=== PATIENT | female | born 1970 | race Caucasian/White ===

== ENCOUNTER 2019-02-24 00:22 | Emergency (ER) | payer OTHER ==
--- OUTSIDE RECORDS SUMMARY | 2019-02-24 00:24 | XMS REPORT ---
:1970 [facility] Address [address] [place] [address] Care Team Providers Name Role Phone Unavailable Unavailable Unavailable Problems This patient has no known problems. Allergies, Adverse Reactions, Alerts This patient has no known allergies or adverse reactions. Medications This patient has no known medications.
[2019-02-24 01:03] LABS: Absolute Lymphocytes (CBC) 1.8 K/uL (0.7-4.9); Absolute Monocytes 0.4 K/uL (0.1-1.3); Absolute Neutrophil 7.6 K/uL (1.8-8.0); Basophils % 0.6 % (0-1.3); Eosinophils % 0.3 % (0-4.4); Hematocrit 35.4 % (36.0-45.0); Lymphocytes % 17.9 % (15.3-44.8); MPV 8.5 fL (7.6-11.3); Monocytes % 4.3 % (3.3-12.3); RBC Red Blood Cell Count 3.96 M/uL (3.86-4.86)
[2019-02-24] MEDS ORDERED: ONDANSETRON 4 MG/2 ML VIAL ONE (01:15)
[2019-02-24] MEDS ORDERED: NA CHLORIDE 0.9% 500 ML ONE (01:15)
[2019-02-24 01:20] LABS: ALT/SGPT 19 U/L (12-78); AST/SGOT 19 U/L (15-37); Albumin 3.2 g/dL (3.4-5.0); Alkaline Phosphatase 56 U/L (45-117); BUN Blood Urea Nitrogen 24 mg/dL (7-18); Bicarbonate 22 mmol/L (21-32); Bilirubin Direct < 0.1 mg/dL (0-0.2); Bilirubin Total 0.3 mg/dL (0.2-1.0); Glucose Level 110 mg/dL (74-106); Lipase 147 U/L (73-393); Potassium 3.9 mmol/L (3.5-5.1); Protein, Total 7.2 g/dL (6.4-8.2); Sodium Level 136 mmol/L (136-145)
--- NOTE | 2019-02-24 03:09 | EDPHYS ---
Physician Documentation [facility] Name: Julieth Flores Age: 48 yrs Sex: Female : 1970 Arrival Date: 02/24/2019 Time: 00:29 Bed 15 Private MD: ED Physician Alex Jimenez HPI: 02/24 02:03 This 48 yrs old Female presents to ER via EMS with complaints of Abdominal jr8 pain, nausea, shortness of breath. 02:03 The patient presents with abdominal pain in the upper abdomen. Onset: The jr8 symptoms/episode began/occurred acutely. The symptoms do not radiate. Associated signs and symptoms: Pertinent positives: nausea, shortness of breath. The symptoms are described as shooting. Modifying factors: The symptoms are alleviated by nothing, the symptoms are aggravated by nothing. Severity of pain: At its worst the pain was moderate in the emergency department the pain is unchanged. The patient has experienced similar episodes in the past, chronically. The patient has not recently seen a physician. 02:03 Patient stated that she has had abdominal pain on/off for several months. Worse today jr8 and with shortness of breath. Denies CP or fevers . 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 - Social history:: Smoking status: Patient/guardian denies using tobacco. - Ebola Screening: : No symptoms or risks identified at this time. ROS: 02:03 Eyes: Negative for injury, pain, redness, and discharge, ENT: Negative for injury, jr8 pain, and discharge, Neck: Negative for injury, pain, and swelling, Cardiovascular: Negative for chest pain, palpitations, and edema, Back: Negative for injury and pain, MS/Extremity: Negative for injury and deformity, Skin: Negative for injury, rash, and discoloration, Neuro: Negative for headache, weakness, numbness, tingling, and seizure. 02:03 Respiratory: Positive for shortness of breath, Negative for cough, dyspnea on exertion, hemoptysis, orthopnea, pleurisy, sputum production, wheezing. 02:03 Abdomen/GI: Positive for abdominal pain, nausea, Negative for vomiting, diarrhea, abdominal distension, anorexia, dysphagia, hematemesis, black/tarry stool, rectal pain, rectal bleeding, bowel incontinence, flatulence. Exam: 02:03 Eyes: Pupils equal round and reactive to light, extra-ocular motions intact. Lids and jr8 lashes normal. Conjunctiva and sclera are non-icteric and not injected. Cornea within normal limits. Periorbital areas with no swelling, redness, or edema. ENT: Nares patent. No nasal discharge, no septal abnormalities noted. Tympanic membranes are normal and external auditory canals are clear. Oropharynx with no redness, swelling, or masses, exudates, or evidence of obstruction, uvula midline. Mucous membranes moist. Neck: Trachea midline, no thyromegaly or masses palpated, and no cervical lymphadenopathy. Supple, full range of motion without nuchal rigidity, or vertebral point tenderness. No Meningismus. Cardiovascular: Regular rate and rhythm with a normal S1 and S2. No gallops, murmurs, or rubs. Normal PMI, no JVD. No pulse deficits. Respiratory: Lungs have equal breath sounds bilaterally, clear to auscultation and percussion. No rales, rhonchi or wheezes noted. No increased work of breathing, no retractions or nasal flaring. Abdomen/GI: Soft, non-tender, with normal bowel sounds. No distension or tympany. No guarding or rebound. No evidence of tenderness throughout. Back: No spinal tenderness. No costovertebral tenderness. Full range of motion. Skin: Warm, dry with normal turgor. Normal color with no rashes, no lesions, and no evidence of cellulitis. MS/ Extremity: Pulses equal, no cyanosis. Neurovascular intact. Full, normal range of motion. Neuro: Awake and alert, GCS 15, oriented to person, place, time, and situation. Cranial nerves II-XII grossly intact. Motor strength 5/5 in all extremities. Sensory grossly intact. Cerebellar exam normal. Normal gait. Vital Signs: 00:33 BP 155 / 88; Pulse 101; Resp 20; Temp 98.2(O); Pulse Ox 100% on R/A; Weight 83.91 kg; tl2 Height 5 ft. 0 in. (152.40 cm); Pain 3/10; 01:26 BP 146 / 63; Pulse 88; Resp 18; Pulse Ox 100% on R/A; tl2 02:25 BP 142 / 58; Pulse 87; Resp 18; Pulse Ox 100% on R/A; tl2 03:25 BP 130 / 51; Pulse 94; Resp 18; Pulse Ox 99% on R/A; tl2 00:33 Body Mass Index 36.13 (83.91 kg, 152.40 cm) tl2 MDM: 00:37 Patient medically screened. 8 03:00 Data reviewed: vital signs, nurses notes, lab test result(s), radiologic studies, CT jr8 scan. Data interpreted: Pulse oximetry: on room air is 100 %. Interpretation: normal. Counseling: I had a detailed discussion with the patient and/or guardian regarding: the historical points, exam findings, and any diagnostic results supporting the discharge/admit diagnosis, lab results, radiology results, the need for outpatient follow up, a family practitioner, to return to the emergency department if symptoms worsen or persist or if there are any questions or concerns that arise at home. Response to treatment: the patient's symptoms have mildly improved after treatment. 02/24 00:50 Order name: Basic Metabolic Panel; Complete Time: 02/24 00:50 Order name: CBC with Diff; Complete Time: :02/24 00:50 Order name: Creatinine for Radiology; Complete Time: 02/24 00:50 Order name: Hepatic Function; Complete Time: 02/24 00:50 Order name: Lipase; Complete Time: 02/24 00:50 Order name: XRAY Chest (1 view) 02/24 00:50 Order name: IV Saline Lock; Complete Time: 02/24 00:50 Order name: Labs collected and sent; Complete Time: 0002/24 00:50 Order name: EKG - Nurse/Tech; Complete Time: :02/24 01:42 Order name: CT Abd/Pelvis - Without Cont jr8 Administered Medications: 01:07 Drug: NS 0.9% 500 ml Route: IV; Rate: bolus; Site: right wrist; tl2 02:00 Follow up: IV Status: Completed infusion; IV Intake: 500ml tl2 01:07 Drug: Zofran 4 mg Route: IVP; Site: right wrist; tl2 02:00 Follow up: Response: No adverse reaction; Nausea is decreased tl2 Disposition: 02/24/19 03:09 Discharged to Home. Impression: Unspecified abdominal hernia without obstruction or gangrene, Abdominal and pelvic pain, Shortness of breath. - Condition is Stable. - Discharge Instructions: Abdominal Pain, Adult, Allergies, Adult, Hernia, Adult. - Prescriptions for Zofran 4 mg Oral Tablet - take 1 tablet by ORAL route every 12 hours As needed; 20 tablet. - Medication Reconciliation Form, Thank You Letter, Antibiotic Education, Prescription Opioid Use form. - Follow up: Private Physician; When: 2 - 3 days; Reason: Recheck today's complaints, Continuance of care, Re-evaluation by your physician. - Problem is new. - Symptoms have improved. Addendum: 02/26/2019 11:16 Co-signature as Attending Physician, Alex Jimenez MD I agree with the assessment and c chavez plan of care. Signatures: Dispatcher [employer] EDRI Alex Jimenez MD MD cha Roszak, Josh, PA PA jr8 Mily Yusuf RN RN tl2 Corrections: (The following items were deleted from the chart) 02/24 03:54 03:09 02/24/2019 03:09 Discharged to Home. Impression: Unspecified abdominal hernia tl2 without obstruction or gangrene; Abdominal and pelvic pain; Shortness of breath. Condition is Stable. Discharge Instructions: Abdominal Pain, Adult, Allergies, Adult, Hernia, Adult. Prescriptions for Zofran 4 mg Oral Tablet - take 1 tablet by ORAL route every 12 hours As needed; 20 tablet. and Forms are Medication Reconciliation Form, Thank You Letter, Antibiotic Education, Prescription Opioid Use. Follow up: Private Physician; When: 2 - 3 days; Reason: Recheck today's complaints, Continuance of care, Re-evaluation by your physician. Problem is new. Symptoms have improved. jr8
--- NOTE | 2019-02-24 03:09 | ER ---
Nurse's Notes [facility] Name: Julieth Flores Age: 48 yrs Sex: Female : 1970 Arrival Date: 02/24/2019 Time: 00:29 Bed 15 Private MD: Diagnosis: Unspecified abdominal hernia without obstruction or gangrene;Abdominal and pelvic pain;Shortness of breath Presentation: 02/24 00:30 Presenting complaint: Patient states: shortness of breath, RUQ hernia pain and sinus tl2 problems. Transition of care: patient was not received from another setting of care. Onset of symptoms was February 23, 2019. Risk Assessment: Do you want to hurt yourself or someone else? Patient reports no desire to harm self or others. Initial Sepsis Screen: Does the patient meet any 2 criteria? No. Patient's initial sepsis screen is negative. Does the patient have a suspected source of infection? No. Patient's initial sepsis screen is negative. Care prior to arrival: IV initiated. 22 GA, in the right wrist, Glucose check: 130. 00:30 Method Of Arrival: EMS: [facility] tl2 00:30 Acuity: CAREY 3 tl2 Triage Assessment: 00:33 General: Appears in no apparent distress. uncomfortable, Behavior is cooperative, tl2 appropriate for age, anxious. Pain: Complains of pain in right upper quadrant. Neuro: Level of Consciousness is awake, alert, obeys commands, Oriented to person, place, time, situation. Cardiovascular: Denies chest pain. Respiratory: Reports shortness of breath Airway is patent Respiratory effort is even, unlabored, Respiratory pattern is regular, symmetrical, Onset: The symptoms/episode began/occurred today, the patient has mild shortness of breath. GI: Reports nausea. : No signs and/or symptoms were reported regarding the genitourinary system. Derm: Skin is pink, warm \T\ dry. 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 - Social history:: Smoking status: Patient/guardian denies using tobacco. - Ebola Screening: : No symptoms or risks identified at this time. Screenin:35 Abuse screen: Denies threats or abuse. Nutritional screening: No deficits noted. tl2 Tuberculosis screening: No symptoms or risk factors identified. Fall Risk None identified. Assessment: 00:36 General: see triage assessment. Cardiovascular: Denies chest pain. Respiratory: Airway tl2 is patent Respiratory effort is even, unlabored, Respiratory pattern is regular, symmetrical. 00:36 Cardiovascular: Rhythm is sinus rhythm. Respiratory: Breath sounds are clear tl2 bilaterally. 01:30 Reassessment: Patient appears in no apparent distress at this time. Patient and/or tl2 family updated on plan of care and expected duration. Pain level reassessed. Patient is alert, oriented x 3, equal unlabored respirations, skin warm/dry/pink. 02:30 Reassessment: Patient appears in no apparent distress at this time. Patient and/or tl2 family updated on plan of care and expected duration. Pain level reassessed. Patient is alert, oriented x 3, equal unlabored respirations, skin warm/dry/pink. 03:25 Reassessment: Patient appears in no apparent distress at this time. Patient and/or tl2 family updated on plan of care and expected duration. Pain level reassessed. Patient is alert, oriented x 3, equal unlabored respirations, skin warm/dry/pink. pt verbalized understanding of discharge instructions, need for follow up and prescription usage. Will wait in room for her ride to arrive at 0400. Vital Signs: 00:33 BP 155 / 88; Pulse 101; Resp 20; Temp 98.2(O); Pulse Ox 100% on R/A; Weight 83.91 kg; tl2 Height 5 ft. 0 in. (152.40 cm); Pain 3/10; 01:26 BP 146 / 63; Pulse 88; Resp 18; Pulse Ox 100% on R/A; tl2 02:25 BP 142 / 58; Pulse 87; Resp 18; Pulse Ox 100% on R/A; tl2 03:25 BP 130 / 51; Pulse 94; Resp 18; Pulse Ox 99% on R/A; tl2 00:33 Body Mass Index 36.13 (83.91 kg, 152.40 cm) tl2 ED Course: 00:29 Patient arrived in ED. tl2 00:31 Triage completed. tl2 00:33 Arm band placed on left wrist. tl2 00:35 Patient has correct armband on for positive identification. Bed in low position. Call tl2 light in reach. Side rails up X2. 00:35 Maintain EMS IV. Dressing intact. Good blood return noted. Site clean \T\ dry. Gauge \T\ tl 2 site: 22 g R wrist. 00:37 Lionel Garza PA is PHCP. jr8 00:37 Alex Jimenez MD is Attending Physician. jr8 00:53 Mily Yusuf, JORGE is Primary Nurse. tl2 02:11 XRAY Chest (1 view) In Process Unspecified. EDMS 02:50 CT Abd/Pelvis - Without Cont In Process Unspecified. EDMS 03:25 No provider procedures requiring assistance completed. IV discontinued, intact, tl2 bleeding controlled, No redness/swelling at site. Pressure dressing applied. Administered Medications: 01:07 Drug: NS 0.9% 500 ml Route: IV; Rate: bolus; Site: right wrist; tl2 02:00 Follow up: IV Status: Completed infusion; IV Intake: 500ml tl2 01:07 Drug: Zofran 4 mg Route: IVP; Site: right wrist; tl2 02:00 Follow up: Response: No adverse reaction; Nausea is decreased tl2 Intake: 02:00 IV: 500ml; Total: 500ml. tl2 Outcome: 03:09 Discharge ordered by . jr8 03:53 Discharged to home via wheelchair, with family. tl2 03:53 Condition: stable 03:53 Discharge instructions given to patient, Instructed on discharge instructions, follow up and referral plans. medication usage, Demonstrated understanding of instructions, follow-up care, medications, Prescriptions given X 1. 03:54 Patient left the ED. tl2 Signatures: Dispatcher [employer] EDMS Lionel Garza PA PA jr8 Mily Yusuf, RN RN tl2
[2019-02-24 04:51] VITALS: TEMP 98.2
[2019-02-24 04:57] VITALS: BP 130/51; O2SAT 99
--- NOTE | 2019-02-24 10:18 | RAD REPORT ---
EXAM DESCRIPTION: RAD - Chest Single View - 02/24/2019 2:11 am CLINICAL HISTORY: DYSPNEA Chest pain. COMPARISON: CHEST PA AND LAT 2 VIEW dated 02/23/2008; CHEST PA AND LAT 2 VIEW dated 01/09/2008 FINDINGS: Portable technique limits examination quality. The lungs are grossly clear. Mild elevation the right hemidiaphragm noted. The heart is normal in siz e. No displaced fractures.
--- NOTE | 2019-02-26 11:37 | RAD REPORT ---
EXAM DESCRIPTION: CT Abdomen and Pelvis Without Intravenous Contrast CLINICAL HISTORY: The patient is 48 years old and is Female; no iv or oral contrast; Abd pain TECHNIQUE: Axial computed tomography images of the abdomen and pelvis without intravenous contrast. Sagittal and coronal reformatted images were created and reviewed. This CT exam was performed usi ng one or more of the following dose reduction techniques: automated exposure control, adjustment o f the mA and/or kV according to patient size, and/or use of iterative reconstruction technique. COMPARISON: No relevant prior studies available. FINDINGS: LUNG BASES: Unremarkable. No mass. No consolidation. ABDOMEN: LIVER: The liver is mildly fatty. GALLBLADDER AND BILE DUCTS: Surgical clips are present in the right upper quadrant, consistent w ith previous cholecystectomy. PANCREAS: Unremarkable. No ductal dilation. SPLEEN: Unremarkable. ADRENALS: Unremarkable. No mass. KIDNEYS AND URETERS: No obstructing stones. No hydronephrosis. STOMACH AND BOWEL: The stomach is minimally distended. The majority of small bowel is normal in caliber. A few distal small bowel loops within the right lower quadrant are fluid-filled with mild mu cosal thickening and adjacent edema in the mesentery/fat stranding. Stool is present throughout the c olon. There is no evidence of bowel obstruction. A right lateral abdominal wall hernia containing a loop of colon is noted. There is no evidence to suggest strangulation. PELVIS: APPENDIX: The base of the appendix is dilated measuring up to 0.7. However, there is no signific ant surrounding inflammation or fluid. The tip is normal in caliber. BLADDER: Unremarkable. No stones. REPRODUCTIVE: Unremarkable as visualized. ABDOMEN and PELVIS: INTRAPERITONEAL SPACE: Trace free fluid is present within the pelvis which is likely physiologic . No free air. BONES/JOINTS: Mild multilevel degenerative changes spine is present. SOFT TISSUES: See above. VASCULATURE: Unremarkable. No abdominal aortic aneurysm. LYMPH NODES: Unremarkable. No enlarged lymph nodes. IMPRESSION: 1. Findings suggestive a focal enteritis involving the distal ileum. No bowel obstruct ion. 2. Base of the appendix is upper limits of normal in size. However, there is no significant surroun ding inflammation or fluid to suggest acute appendicitis. 3. Right lateral abdominal wall hernia containing colon without evidence to suggest obstruction. Electronically signed by: Nelsy Grullon MD 02/24/2019 2:59 AM CDT Due to temporary technical issues with the PACS/Fluency reporting system, reports are being signed by the in house radiologist as a courtesy to ensure prompt reporting. The interpreting radiologist is f ully responsible for the content of the report.
== END 2019-02-24 03:54 | disposition home or self-care (01) ==
LOC: ER 00:22
DX: K46.9 Unspecified abdominal hernia without obstruction or gangrene (principal); R06.02 Shortness of breath; E78.00 Pure hypercholesterolemia, unspecified
CPT/HCPCS: 36415; 71045; 74176; 80048; 80076; 83690; 85025; 93005; 96361; 96374; 99284; J2405

== ENCOUNTER 2019-04-27 19:35 | Emergency (ER) | payer OTHER ==
--- OUTSIDE RECORDS SUMMARY | 2019-04-27 19:37 | XMS REPORT ---
:1970 [facility] Address [address] [place] [address] Care Team Providers Name Role Phone Unavailable Unavailable Unavailable Problems This patient has no known problems. Allergies, Adverse Reactions, Alerts This patient has no known allergies or adverse reactions. Medications This patient has no known medications.
[2019-04-27] MEDS ORDERED: MAGNESIUM CITRATE 300 ML BOT ONE (20:41)
--- NOTE | 2019-04-27 20:53 | RAD REPORT ---
EXAM DESCRIPTION: RAD - Abdomen Acute Series - 04/27/2019 8:44 pm CLINICAL HISTORY: Abdominal pain FINDINGS: Air is present within nondilated small bowel and colon in a nonspecific fashion Free air is not seen beneath the diaphragm. Surgical clips right upper quadrant Phleboliths within the pelvis
--- NOTE | 2019-04-27 23:01 | EDPHYS ---
Physician Documentation [facility] Name: Julieth Flores Age: 48 yrs Sex: Female : 1970 Arrival Date: 04/27/2019 Time: 19:38 Bed 26 Private MD: ED Physician Cezar Huang HPI: 04/27 21:50 This 48 yrs old Female presents to ER via EMS with complaints of constipation.ps1 21:50 patient states that she has a history of constipation and last week started having ps1 symptoms. She states that she got worse over the weekend so took an imodium (2 pills) states that her constipation did not get better. She states that she has not had a bowel movement in a couple of days. She is still passsing gas. States that she has abnormal esophageal sphincter and rectal sphincter and previously had them dilated at [facility]. . 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 - Social history:: Smoking status: unknown Patient/guardian denies using alcohol, street drugs, IV drugs. - Ebola Screening: : No symptoms or risks identified at this time. ROS: 21:50 Constitutional: Negative for fever, chills, and weight loss, Eyes: Negative for injury, ps1 pain, redness, and discharge, ENT: Negative for injury, pain, and discharge, Cardiovascular: Negative for chest pain, palpitations, and edema, Respiratory: Negative for shortness of breath, cough, wheezing, and pleuritic chest pain, MS/Extremity: Negative for injury and deformity, Skin: Negative for injury, rash, and discoloration, Neuro: Negative for headache, weakness, numbness, tingling, and seizure. 21:50 Abdomen/GI: Positive for abdominal pain, constipation. Exam: 21:50 Constitutional: This is a well developed, well nourished patient who is awake, alert, ps1 and in no acute distress. Head/Face: Normocephalic, atraumatic. Eyes: Pupils equal round and reactive to light, extra-ocular motions intact. Lids and lashes normal. Conjunctiva and sclera are non-icteric and not injected. Chest/axilla: Normal chest wall appearance and motion. Nontender with no deformity. No lesions are appreciated. Cardiovascular: Regular rate and rhythm. No gallops, murmurs, or rubs. Normal PMI, no JVD. No pulse deficits. Respiratory: Lungs have equal breath sounds bilaterally, clear to auscultation and percussion. No rales, rhonchi or wheezes noted. No increased work of breathing, no retractions or nasal flaring. Skin: Warm, dry with normal turgor. Normal color with no rashes, no lesions, and no evidence of cellulitis. MS/ Extremity: Pulses equal, no cyanosis. Neurovascular intact. Full, normal range of motion. Neuro: Awake and alert, GCS 15, oriented to person, place, time, and situation. Cranial nerves II-XII grossly intact. Sensory grossly intact. 21:50 Abdomen/GI: Soft, non-tender, with normal bowel sounds. No distension or tympany. No ps1 guarding or rebound. No evidence of tenderness throughout. Vital Signs: 19:48 BP 123 / 51; Pulse 89; Resp 18; Temp 98.8; Pulse Ox 100% on R/A; Pain 5/10; mg2 21:10 BP 127 / 90; Pulse 97; Resp 18; Temp 98.7; Pulse Ox 100% on R/A; Pain 3/10; mg2 22:41 BP 123 / 76; Pulse 98; Resp 18; Temp 98.5; Pulse Ox 100% on R/A; Pain 3/10; mg2 23:53 BP 114 / 58; Pulse 100; Resp 20; Temp 98; Pulse Ox 100% on R/A; mg2 06/01 00:51 BP 108 / 63; Pulse 101; Resp 18; Temp 98.5(O); Pulse Ox 100% on R/A; Pain 2/10; mg2 MDM: 04/27 21:36 Patient medically screened. ps1 22:59 Data reviewed: vital signs, nurses notes, and as a result, I will discharge patient. ED ps1 course: Patient had BM. Symptoms improved. Stable for discharge. . 04/27 20:15 Order name: Abdomen Acute Series XRAY; Complete Time: 21:36 ps1 Administered Medications: 21:04 Drug: Magnesium Citrate Liquid 300 ml Route: PO; mg2 04/28 00:51 Follow up: Response: No adverse reaction; Other; patient pooped 3 times in the restroom.mg2 Disposition: 04/27/19 23:01 Discharged to Home. Impression: Constipation, unspecified. - Condition is Stable. - Discharge Instructions: Constipation, Adult. - Prescriptions for Colace 100 mg Oral Tablet - take 1 tablet by ORAL route every 12 hours; 14 tablet. - Medication Reconciliation Form, Thank You Letter, Antibiotic Education, Prescription Opioid Use form. - Follow up: Private Physician; When: As needed; Reason: Recheck today's complaints, Continuance of care, Re-evaluation by your physician. Follow up: Emergency Department; When: As needed; Reason: Worsening of condition. - Problem is chronic. - Symptoms have improved. Signatures: Dispatcher [employer] EDMS Cezar Huang MD MD ps1 Alan Cedeno RN RN mg2 Corrections: (The following items were deleted from the chart) 00:52 04/27 23:01 04/27/2019 23:01 Discharged to Home. Impression: Constipation, unspecified. mg2 Condition is Stable. Forms are Medication Reconciliation Form, Thank You Letter, Antibiotic Education, Prescription Opioid Use. Follow up: Private Physician; When: As needed; Reason: Recheck today's complaints, Continuance of care, Re-evaluation by your physician. Follow up: Emergency Department; When: As needed; Reason: Worsening of condition. Problem is chronic. Symptoms have improved. ps1
--- NOTE | 2019-04-27 23:01 | ER ---
Nurse's Notes [facility] Name: Julieth Flores Age: 48 yrs Sex: Female : 1970 Arrival Date: 04/27/2019 Time: 19:38 Bed 26 Private MD: Diagnosis: Constipation, unspecified Presentation: 04/27 19:46 Presenting complaint: EMS states: patient has been constipated and having abdominal mg2 discomfort since last week. denies n/v or fever. Transition of care: patient was not received from another setting of care. Onset of symptoms was March 2019. Risk Assessment: Do you want to hurt yourself or someone else? Patient reports no desire to harm self or others. Initial Sepsis Screen: Does the patient meet any 2 criteria? No. Patient's initial sepsis screen is negative. Does the patient have a suspected source of infection? No. Patient's initial sepsis screen is negative. Care prior to arrival: None. 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 - Social history:: Smoking status: unknown Patient/guardian denies using alcohol, street drugs, IV drugs. - Ebola Screening: : No symptoms or risks identified at this time. Screenin:53 Abuse screen: Denies threats or abuse. Denies injuries from another. Nutritional mg2 screening: No deficits noted. Tuberculosis screening: No symptoms or risk factors identified. Fall Risk Gait- Weak (10 pts.). Assessment: 19:59 General: Appears in no apparent distress. comfortable, Behavior is calm, cooperative. mg2 Pain: Complains of pain in abdomen Pain does not radiate. Pain currently is 5 out of 10 on a pain scale. Quality of pain is described as discomfort Pain began gradually, Is intermittent. Neuro: Level of Consciousness is awake, alert, obeys commands, Oriented to person, place, time, situation. Cardiovascular: Capillary refill < 3 seconds Patient's skin is warm and dry. Respiratory: Airway is patent Respiratory effort is even, unlabored, Respiratory pattern is regular, symmetrical. GI: Reports lower abdominal pain, upper abdominal pain, constipation. : No signs and/or symptoms were reported regarding the genitourinary system. EENT: No signs and/or symptoms were reported regarding the EENT system. Derm: Skin is intact, is healthy with good turgor, Skin is pink, warm \T\ dry. normal. Musculoskeletal: Circulation, motion, and sensation intact. Capillary refill < 3 seconds. 21:31 Reassessment: Patient appears in no apparent distress at this time. Assisted pt to [facility] restroom for BM. 22:42 Reassessment: patient was heavily straining in the restroom. i assisted her back to the mg2 bed. 23:31 Reassessment: patient went to the restroom and pooped again. assisted her back to the mg2 bed. told her she is up for discharge but she is refusing to go home. provider informed. 23:52 Respiratory: Reports shortness of breath Breath sounds are clear bilaterally. in left mg2 posterior upper lobe, right posterior upper lobe, left posterior lower lobe, right posterior middle lobe and right posterior lower lobe. 04/28 00:16 Reassessment: patient still in the restroom trying to poop. mg2 00:49 Reassessment: dr aranda came and spoke to the patient that she can be discharge now. mg2 patient wheeled out to the waiting area in good condition, alert, oriented and not in distress. Vital Signs: 04/27 19:48 BP 123 / 51; Pulse 89; Resp 18; Temp 98.8; Pulse Ox 100% on R/A; Pain 5/10; mg2 21:10 BP 127 / 90; Pulse 97; Resp 18; Temp 98.7; Pulse Ox 100% on R/A; Pain 3/10; mg2 22:41 BP 123 / 76; Pulse 98; Resp 18; Temp 98.5; Pulse Ox 100% on R/A; Pain 3/10; mg2 23:53 BP 114 / 58; Pulse 100; Resp 20; Temp 98; Pulse Ox 100% on R/A; mg2 06/01 00:51 BP 108 / 63; Pulse 101; Resp 18; Temp 98.5(O); Pulse Ox 100% on R/A; Pain 2/10; mg2 ED Course: 04/27 19:38 Patient arrived in ED. garry 19:42 Alan Cedeno, RN is Primary Nurse. mg2 19:48 Triage completed. mg2 19:48 Cezar Aranda MD is Attending Physician. ps1 19:53 Arm band placed on. mg2 19:53 Patient has correct armband on for positive identification. Door closed. mg2 20:01 No provider procedures requiring assistance completed. mg2 20:45 Abdomen Acute Series XRAY In Process Unspecified. EDMS 04/28 00:50 Patient did not have IV access during this emergency room visit. mg2 Administered Medications: 04/27 21:04 Drug: Magnesium Citrate Liquid 300 ml Route: PO; mg2 04/28 00:51 Follow up: Response: No adverse reaction; Other; patient pooped 3 times in the restroom.mg2 Intake: Outcome: 04/27 23:01 Discharge ordered by . ps1 04/28 00:50 Discharged to home via wheelchair. mg2 Condition: stable Discharge instructions given to patient, Instructed on discharge instructions, follow up and referral plans. medication usage, Demonstrated understanding of instructions, follow-up care, medications, Prescriptions given X 1. 00:52 Patient left the ED. mg2 Signatures: Dispatcher [employer] Jo Barrera RN RN bb Singer, Phillip, MD MD ps1 Alan Cedeno RN RN mg2 Samanta Lei RN RN ca1
[2019-04-28 02:57] VITALS: O2SAT 100
[2019-04-28 03:02] VITALS: BP 108/63; TEMP 98.5
== END 2019-04-28 00:52 | disposition home or self-care (01) ==
LOC: ER 19:35
DX: K59.00 Constipation, unspecified (principal); E78.00 Pure hypercholesterolemia, unspecified
CPT/HCPCS: 74022; 99284